=== PATIENT | female | born 1990 | race Caucasian/White ===

== ENCOUNTER 2019-01-06 20:03 | Emergency (ER) | payer SELFPAY ==
[~2019-01-06] VITALS: Ht 180.3 cm; Wt 113.4 kg
--- OUTSIDE RECORDS SUMMARY | 2019-01-06 20:06 | XMS REPORT ---
[facility] Address Unknown Phone Unavailable Care Team Providers Care Blockmason Name Role Phone Unavailable Unavailable Payers Payer Name Policy Type Policy Number Effective Date Expiration Date Problems This patient has no known problems. Allergies, Adverse Reactions, Alerts Allergy Name Allergy Type Status Severity Reaction(s) Onset Date Inactive Date Treating Clinician Comments No Known Drug Allergies DA Active U 2019-01-06 00:00:00 strawberry FA Active SV 2019-01-06 00:00:00 No Known Drug Allergies DA Active U 2011-05-02 00:00:00 strawberry FA Active SV 2011-05-02 00:00:00 Medications This patient has no known medications. Results Test Description Test Time Test Comments Text Results Atomic Results Result Comments COMPREHENSIVE METABOLIC PANEL 2019-01-06 05:49:00 SODIUM (test code=NA) 137 mmol/L 136-145 POTASSIUM (test code=K) 3.0 mmol/L 3.5-5.1 CHLORIDE (test code=CL) 98 mmol/L 101-109 CARBON DIOXIDE (test code=CO2) 27.6 mmol/L 21-32 ANION GAP (test code=GAP) 14 mmol/L 10-20 GLUCOSE (test code=GLU) 95 mg/dL 74-106 BLOOD UREA NITROGEN (test code=BUN) 12 mg/dL 3-21 CREATININE (test code=CREAT) 0.97 mg/dL 0.55-1.3 BUN/CREATININE RATIO (test code=BUN/CREA) 12.4 10-20 TOTAL PROTEIN (test code=PROT) 8.4 g/dL 6.5-8.4 ALBUMIN (test code=ALB) 3.2 g/dL 3.4-4.8 GLOBULIN (test code=GLOB) 5.2 G/DL 1-10 ALBUMIN/GLOBULIN RATIO (test code=A/G) 0.62 RATIO 0.75-1.50 CALCIUM (test code=CA) 8.5 mg/dL 8.4-10.2 BILIRUBIN TOTAL (test code=BILT) 0.50 mg/dL 0.0-1.0 SGOT/AST (test code=AST) 71 U/L 6-32 SGPT/ALT (test code=ALT) 128 U/L 12-78 Note: Change in REFERENCE RANGE due to new reagent method. ALKALINE PHOSPHATASE TOTAL (test code=ALKP) 78 U/L 38-126 [id number] 05:49:00* Test Item Value Reference Range Comments LIPASE (test code=LIP) 111 U/L 128-270 COMPREHENSIVE METABOLIC [id number] 05:46:00* Test Item Value Reference Range Comments SODIUM (test code=NA) 137 mmol/L 136-145 POTASSIUM (test code=K) 3.0 mmol/L 3.5-5.1 CHLORIDE (test code=CL) 98 mmol/L 101-109 CARBON DIOXIDE (test code=CO2) 27.6 mmol/L 21-32 ANION GAP (test code=GAP) 14 mmol/L 10-20 GLUCOSE (test code=GLU) 95 mg/dL 74-106 BLOOD UREA NITROGEN (test code=BUN) 12 mg/dL 3-21 CREATININE (test code=CREAT) 0.97 mg/dL 0.55-1.3 BUN/CREATININE RATIO (test code=BUN/CREA) 12.4 10-20 TOTAL PROTEIN (test code=PROT) gram/dL 6.4-8.2 ALBUMIN (test code=ALB) g/dL 3.4-5.0 GLOBULIN (test code=GLOB) g/dL 2.7-4.2 ALBUMIN/GLOBULIN RATIO (test code=A/G) 0.75-1.50 CALCIUM (test code=CA) 8.5 mg/dL 8.4-10.2 BILIRUBIN TOTAL (test code=BILT) mg/dL 0.2-1.2 SGOT/AST (test code=AST) IUnit/L 15-37 SGPT/ALT (test code=ALT) U/L 10-69 ALKALINE PHOSPHATASE TOTAL (test code=ALKP) IUnit/L 45-117 [id number] 05:46:00* Test Item Value Reference Range Comments LIPASE (test code=LIP) Unit/L 144-286 CBC W/AUTO [id number] 05:34:00* Test Item Value Reference Range Comments WHITE BLOOD CELL (test code=WBC) 5.7 K/mm3 4.5-12.5 RED BLOOD CELL (test code=RBC) 3.71 mill/mm3 3.7-5.2 HEMOGLOBIN (test code=HGB) 10.9 gram/dL 11.5-15.5 HEMATOCRIT (test code=HCT) 32.3 % 36.0-46.0 MEAN CELL VOLUME (test code=MCV) 87.1 fL 80-98 MEAN CELL HGB (test code=MCH) 29.4 picogram 27.0-33.0 MEAN CELL HGB CONCETRATION (test code=MCHC) 33.7 gram/dL 33.0-36.0 RED CELL DISTRIBUTION WIDTH (test code=RDW) 12.8 % 11.6-16.2 RED CELL DISTRIBUTION WIDTH SD (test code=RDW-SD) 41.6 fL 37.0-51.0 PLATELET COUNT (test code=PLT) 205 K/mm3 150-450 MEAN PLATELET VOLUME (test code=MPV) 10.4 fL 6.7-11.0 NEUTROPHIL % (test code=NT%) 62.3 % 39.0-69.0 LYMPHOCYTE % (test code=LY%) 26.2 % 25.0-55.0 MONOCYTE % (test code=MO%) 8.6 % 0.0-10.0 EOSINOPHIL % (test code=EO%) 2.1 % 0.0-5.0 BASOPHIL % (test code=BA%) 0.3 % 0.0-1.0 NEUTROPHIL # (test code=NT#) 3.56 K/mm3 1.8-7.7 LYMPHOCYTE # (test code=LY#) 1.50 K/mm3 1.0-5.0 MONOCYTE # (test code=MO#) 0.49 K/mm3 0-0.8 EOSINOPHIL # (test code=EO#) 0.12 K/mm3 0.0-0.5 BASOPHIL # (test code=BA#) 0.02 K/mm3 0.0-0.2 MANUAL DIFF REQUIRED (test code=MDIFF) NO DRUGS OF ABUSE SCREEN [id number] 05:15:00* Test Item Value Reference Range Comments URN COCAINE (test code=COCAURN) NEGATIVE NEGATIVE URN CANNABINOIDS (test code=CANNABURN) NEGATIVE NEGATIVE URN AMPHETAMINE (test code=AMPHETURN) POSITIVE NEGATIVE URN BARBITURATE (test code=BARBITURN) NEGATIVE NEGATIVE URN BENZODIAZEPINE (test code=BENZOURN) NEGATIVE NEGATIVE URN OPIATES (test code=OPIATURN) POSITIVE NEGATIVE URN PHENCYCLIDINE (PCP) (test code=PHENCURN) NEGATIVE NEGATIVE URINALYSIS [id number] 05:09:00* Test Item Value Reference Range Comments UA COLOR (test code=COLU) YELLOW YELLOW UA APPEARANCE (test code=APPU) HAZY CLEAR UA GLUCOSE DIPSTICK (test code=DGLUU) norm mg/dL NEGATIVE UA BILIRUBIN DIPSTICK (test code=BILU) NEGATIVE mg/dL NEGATIVE UA KETONE DIPSTICK (test code=KETU) 5 (Trace) mg/dL NEGATIVE UA SPECIFIC GRAVITY (test code=SGU) 1.020 1.001-1.035 UA BLOOD DIPSTICK (test code=MELITON) 10 (Trace) Roberto/uL NEGATIVE UA PH DIPSTICK (test code=REJI) 6.0 5.0-8.0 UA PROTEIN DIPSTICK (test code=PROU) 15 (TRACE) mg/dL Neg-15 UA UROBILINIOGEN DIPSTICK (test code=URO) 4 mg/dL (2+) mg/dL 0.0-0.2 UA NITRITE DIPSTICK (test code=CARLOS) NEGATIVE NEGATIVE UA LEUKOCYTE ESTERASE DIPSTICK (test code=LEUU) 500 Michelle/uL (3+) uL NEGATIVE UA WBC (test code=WBCU) 3-5 per HPF 0-5 UA RBC (test code=RBCU) 3-5 per HPF 0-5 UA EPITHELIAL CELLS (test code=EPIU) Few (2-5/hpf) per HPF Few UA BACTERIA (test code=BACU) MANY per HPF NONE UA MUCUS (test code=MUCU) MODERATE per LPF NONE-FEW UA AMORPHOUS SEDIMENT (test code=AMORU) MANY per LPF NONE Urine Source? Clean CatchUR HCG [id number] 05:09:00* Test Item Value Reference Range Comments UR HCG QUAL (test code=HCGQLU) NEGATIVE This HCGQL test is NOT applicable for MALE patients.Check with nurse about probable order error.If Tumor Marker Test needed, nurse should order test "HCGTU"(Test #[id number]) Urine Source? Clean CatchURINALYSIS [id number] 05:03:00* Test Item Value Reference Range Comments UA COLOR (test code=COLU) YELLOW YELLOW UA APPEARANCE (test code=APPU) HAZY CLEAR UA GLUCOSE DIPSTICK (test code=DGLUU) norm mg/dL NEGATIVE UA BILIRUBIN DIPSTICK (test code=BILU) NEGATIVE mg/dL NEGATIVE UA KETONE DIPSTICK (test code=KETU) 5 (Trace) mg/dL NEGATIVE UA SPECIFIC GRAVITY (test code=SGU) 1.020 1.001-1.035 UA BLOOD DIPSTICK (test code=MELITON) 10 (Trace) Roberto/uL NEGATIVE UA PH DIPSTICK (test code=REJI) 6.0 5.0-8.0 UA PROTEIN DIPSTICK (test code=PROU) 15 (TRACE) mg/dL Neg-15 UA UROBILINIOGEN DIPSTICK (test code=URO) 4 mg/dL (2+) mg/dL 0.0-0.2 UA NITRITE DIPSTICK (test code=CARLOS) NEGATIVE NEGATIVE UA LEUKOCYTE ESTERASE DIPSTICK (test code=LEUU) 500 Michelle/uL (3+) uL NEGATIVE UA WBC (test code=WBCU) per HPF 0-5 UA RBC (test code=RBCU) per HPF 0-5 UA EPITHELIAL CELLS (test code=EPIU) per HPF Few UA BACTERIA (test code=BACU) per HPF NONE Urine Source? Clean CatchUR HCG [id number] 05:03:00* Test Item Value Reference Range Comments UR HCG QUAL (test code=HCGQLU) Urine Source? Clean Catch
== END 2019-01-06 21:01 | disposition left against medical advice (07) ==
LOC: ER 20:03
DX: R10.9 Unspecified abdominal pain (principal)
CPT/HCPCS: 93005